=== PATIENT | female | born 1945 | race Caucasian/White ===

== ENCOUNTER → 2017-02-20 | Outpatient (CLI) | payer MEDICARE ==
--- NOTE | 2017-02-20 09:41 | KCIC ---
Indication: Routine screening. Comparison is made with prior exam from 01/24/2015. Bone mineral analysis of the lumbar spine and left hip was performed. Bone mineral density of the lumbar spine from L1 to L4 is 0.896 with a T score of -1.4. This compares with 0.933 and -1.0 on prior. The bone mineral density of the left hip is 0.763 with a T score of -1.5. This compares with 0.852 and -0.7 on prior. IMPRESSION: Osteopenia of the lumbar spine and left hip. Electronically signed by: Guillermo Damon MD (02/20/2017 9:38 AM) [id number]
--- NOTE | 2017-02-20 14:24 | KCIC ---
Bilateral digital screening mammograms: Reason for examination: Routine screening. Comparison is made to previous studies dated 02/08/2016 and 01/24/2015. The skin and nipples show no abnormalities. No abnormal axillary lymph nodes are seen. The breast parenchyma shows scattered fibroglandular density. (Breast density: Category B.) There are no dominant masses, suspicious calcifications or architectural distortions. Impression: No evidence of malignancy. Recommend routine screening. BI-RADS Category 1: Negative. "Our facility is accredited by the [employer] Mammography Program." This patient's information has been entered into a reminder system for the patient to be notified with the results of her examination and a target date for the next mammogram. Electronically signed by: Alana Garcia MD (02/20/2017 2:20 PM) [id number]
== END | disposition home or self-care (01) ==
LOC: KCIC DEXA 08:40
PROVIDERS: ATTEND Family Medicine
DX: Z12.31 Encounter for screening mammogram for malignant neoplasm of breast (principal); Z78.0 Asymptomatic menopausal state; M85.88 Other specified disorders of bone density and structure, other site
CPT/HCPCS: 77080; G0202; 77067

== ENCOUNTER → 2017-03-14 | Outpatient (CLI) | payer MEDICARE ==
--- NOTE | 2017-03-14 14:52 | KCIC ---
CT CALCIUM SCORING dated 03/14/2017 2:30 PM No comparison available. Clinical Indication: Calcium screening. Hypertension and high cholesterol Technical factors: Computed tomography of the heart was performed with ECG gating, suspended respiration and without the administration of contrast material. Post processing was performed on the 3-D computer workstation using diastolic phase images to measure the amount of coronary vascular calcium. Scoring was aquired using the Agatston Method. Results: Thorax: No significant abnormality is identified in the lungs or mediastinum. Note that this CT exam is limited to the heart and adjacent structures. There are a few tiny subpleural nodules at the both lung bases that measure 2 to 3 mm in size, nonspecific. Coronary arteries: Calcium is absent. Total Agaston calcium score equals 0. Coronary vascular calcium is not detected with this exam. This does not absolutely rule out the presence of atherosclerotic plaque, including unstable plaque, but does imply a very low likelihood of significant luminal obstruction. A negative test may be consistent with a low risk of cardiovascular event in the next 2 to 5 years. Conclusions: 1. Normal study, no coronary artery calcium identified. 2. Couple of tiny nonspecific subpleural nodular densities at both lung bases Recommendations: Healthy lifestyle choices including eating appropriately and exercise are encouraged. Additional supporting information concerning the findings and recommendation contained within this report can be found in the consensus statements on coronary vascular calcium published by the [place] [employer] and [place] [employer] and Prevention 5 Conference (Circulation 1996; 94: 3460-2162; J Am [employer]ano Cardiol 2000; 36: 326-340 and Circulation 2000; 101: 111-116). Electronically signed by: Baltazar Zhou MD (03/14/2017 2:49 PM) [id number]
== END | disposition home or self-care (01) ==
LOC: KCIC CT 14:15
PROVIDERS: ATTEND Family Medicine
DX: Z13.6 Encounter for screening for cardiovascular disorders (principal); I10 Essential (primary) hypertension; E78.00 Pure hypercholesterolemia, unspecified; R91.8 Other nonspecific abnormal finding of lung field
CPT/HCPCS: 75571

== ENCOUNTER → 2018-02-21 | Outpatient (CLI) | payer MEDICARE | END | disposition home or self-care (01) | LOC: KCIC MAMMO 07:45 | DX: Z12.31 Encounter for screening mammogram for malignant neoplasm of breast (principal) | CPT/HCPCS: 77063; 77067 ==

== ENCOUNTER → 2018-06-02 | Outpatient (CLI) | payer MEDICARE ==
--- NOTE | 2018-06-02 15:37 | KCIC ---
EXAM: CT Chest without IV contrast CLINICAL HISTORY: Lung nodule follow-up COMPARISON: CT calcium scoring/cardiac 03/14/2017 TECHNIQUE: CT of the chest without intravenous contrast. Axial, coronal and sagittal reformatted images were generated. ---PQRS compliance statement - One or more of the following individualized dose reduction techniques were utilized for this study: 1. Automated exposure control 2. Adjustment of the mA and/or kV according to patient size 3. Use of iterative reconstruction technique--- FINDINGS: Lack of intravenous contrast limits evaluation of solid organs, vasculature, and lymph nodes. Chest: Heart is not enlarged. No pericardial effusion. Trace pericardial fluid superiorly likely physiologic. Aorta is normal in caliber throughout. A few prominent mediastinal and hilar lymph nodes are seen, not enlarged by size criteria. No axillary lymphadenopathy. No pleural effusion or pneumothorax. Mild biapical pleural/painful scarring/thickening is seen. The previously seen lung nodules are grossly stable. There are additional lung nodules not seen on prior exam, for example a 3 mm right upper lobe lung nodule (image 47) and 4 mm left upper lobe lung nodule (image 46) are seen. Given that these are not seen on the prior exam Visualized Upper abdomen: A 2 cm and 0.7 cm left hepatic lobe cystic lesions seen. Adrenal glands are normal. Common bile duct measures up to 6 mm, only partially visualized. Bones: Osseous structures are unremarkable. IMPRESSION: 1. Multiple bilateral lung nodules are seen, the lung nodules included on the prior exam are stable although several lung nodules in the upper lobes were not included on the [id number] on prior exam. Therefore for these lung nodules, Per Fleischner Society guidelines for incidentally found solid nodules measuring less than 6 mm, no follow-up is necessary if patient is considered at low risk for lung cancer. If patient is considered to be at high risk, such as with history of smoking, then CT follow-up in about 12 months can be considered. 2. Left hepatic lobe cystic lesions are seen. 3. Upper limits normal for common bile duct. Electronically signed by: Matthew Maddox MD (06/02/2018 3:34 PM) [id number]
== END | disposition home or self-care (01) ==
LOC: KCIC CT 13:38
PROVIDERS: ATTEND Family Medicine
DX: R91.8 Other nonspecific abnormal finding of lung field (principal)
CPT/HCPCS: 71250

== ENCOUNTER → 2019-01-01 | Outpatient (CLI) | payer MEDICARE ==
--- NOTE | 2019-01-01 10:10 | KCIC ---
Complete abdomen ultrasound study Clinical indications: Bilirubin in urine. COMPARISON: CT study dated June 02, 2018. FINDINGS: The pancreas is homogeneous without focal enlargement. No focal aneurysmal dilatation of the abdominal aorta is seen. The intrahepatic portion of the IVC is unremarkable. There is a 2.4 cm cyst of the left lobe of the liver which is unchanged in size from the prior CT study. Additional hepatic cysts were seen by CT but are not evident sonographically. The liver measures 15.2 cm in length which is normal. The gallbladder is normal without gallstones. The extrahepatic bile 3.7 mm in caliber which is normal. The length of the right kidney is 10.1 cm and the length of the left kidney is 10.1 cm. No hydronephrosis or renal mass or perinephric fluid collection is seen on either side. The spleen is homogeneous and measures 8.9 cm in length. No ascites is seen. IMPRESSION: Hepatic cyst. Unremarkable abdomen ultrasound study otherwise. Electronically signed by: Sang Iniguez MD (01/01/2019 10:07 AM) [email or web address]
== END | disposition home or self-care (01) ==
LOC: KCIC US 07:39
PROVIDERS: ATTEND Family Medicine
DX: K76.89 Other specified diseases of liver (principal)
CPT/HCPCS: 76700

== ENCOUNTER → 2019-03-05 | Outpatient (CLI) | payer MEDICARE ==
--- NOTE | 2019-03-05 16:49 | KCIC ---
Bilateral digital screening mammograms with 3-D tomosynthesis: Reason for examination: Routine screening. Comparison is made to previous studies dated back to 02/08/2016. Bilateral mammograms in CC and oblique projections were obtained with 2-D imaging and 3-D tomosynthesis imaging on a Siemens Inspiration unit and reviewed on the workstation. Interpretation was made with the benefit of CAD. The skin and nipples show no abnormalities. No abnormal axillary lymph nodes are seen. The breast parenchyma shows scattered fatty and fibroglandular density. (Breast density: Category B.) There are small nodular parenchymal asymmetry seen bilaterally which are stable. There are no new dominant masses, suspicious calcifications or architectural distortion. Impression: No evidence of malignancy. Recommend routine screening. BI-RAD Category 2: Benign. "Our facility is accredited by the [employer] Mammography Program." This patient's information has been entered into a reminder system for the patient to be notified with the results of her examination and a target date for the next mammogram. Electronically signed by: Alana Garcia MD (03/05/2019 4:47 PM) [id number]
== END | disposition home or self-care (01) ==
LOC: KCIC MAMMO 13:39
PROVIDERS: ATTEND Family Medicine
DX: Z12.31 Encounter for screening mammogram for malignant neoplasm of breast (principal); N64.89 Other specified disorders of breast
CPT/HCPCS: 77063; 77067

== ENCOUNTER → 2019-07-22 | Outpatient (CLI) | payer MEDICARE ==
--- NOTE | 2019-07-23 08:10 | KCIC ---
Examination: CT CHEST WO CONTRAST History: Dianne Weller Comparison/Correlation: 06/02/2018 CT chest without contrast Findings: Axial images of the chest were obtained without contrast. Sagittal and coronal reformatted images were provided. Mild bilateral lower lobe bronchiectasis greater on the left is present. Several pulmonary nodules are present bilaterally. These are small in size measuring less than 0.5 cm. No suspicious infiltrate. No pneumothorax. No suspicious infiltrate. Biapical pleural thickening again seen. Bony structures are unremarkable. Hepatic cysts are present. Impression: No suspicious process. Bilateral pulmonary nodules are stable. PQRS Compliance Statement: One or more of the following individualized dose reduction techniques were utilized for this examination: 1. Automated exposure control 2. Adjustment of the mA and/or kV according to patient size 3. Use of iterative reconstruction technique Electronically signed by: Brian Nash MD (07/23/2019 8:08 AM) [facility]
== END | disposition home or self-care (01) ==
LOC: KCIC CT 13:23
PROVIDERS: ATTEND Internal Medicine
DX: R91.8 Other nonspecific abnormal finding of lung field (principal); J47.9 Bronchiectasis, uncomplicated; K76.89 Other specified diseases of liver; I10 Essential (primary) hypertension
CPT/HCPCS: 71250

== ENCOUNTER → 2020-03-08 | Outpatient (CLI) | payer MEDICARE ==
--- NOTE | 2020-03-08 12:03 | KCIC ---
EXAM: Bilateral digital screening mammogram with tomosynthesis. HISTORY: 75-year-old female presents for screening mammography. TECHNIQUE: Full-field digital craniocaudal and mediolateral oblique 2D and 3D tomosynthesis images of both breasts are obtained for evaluation. Computer aided detection with AnergisD software version 9.3 was applied. COMPARISON: 03/05/2019 and 02/21/2018 BREAST PARENCHYMAL DENSITY: Level B - Scattered fibroglandular densities. FINDINGS: There is no new suspicious mass, microcalcification or region of architectural distortion. There are stable areas of asymmetry within both breasts. There are multiple benign calcifications. IMPRESSION: BI-RADS Category 2: Benign finding(s). RECOMMENDATION: Annual mammography is recommended. If your mammogram demonstrates that you have dense breast tissue, which could hide abnormalities, and if you have other risk factors for breast cancer that have been identified, you might benefit from supplemental screening tests that may be suggested by your ordering physician. Dense breast tissue, in and of itself, is a relatively common condition. This information is not provided to cause undue concern, but rather to raise your awareness and to promote discussion with your physician regarding the presence of other risk factors, in addition to dense breast tissue. A report of your mammography results will be sent to you and your physician. You should contact your physician if you have any questions or concerns regarding this report. Mammography is a sensitive method for finding small breast cancers, but it does not detect them all and is not a substitute for careful clinical examination. A negative mammogram does not negate a clinically suspicious finding and should not result in delay in biopsying a clinically suspicious abnormality. PQRS compliance statement - Patient information was entered into a reminder system with a target due date for the next mammogram. "Our facility is accredited by the [employer] Mammography Program." Electronically signed by: Karen Cevallos MD (03/08/2020 12:01 PM) [email or web address]
== END | disposition home or self-care (01) ==
LOC: KCIC MAMMO 11:01
PROVIDERS: ATTEND Internal Medicine
DX: Z12.31 Encounter for screening mammogram for malignant neoplasm of breast (principal); N64.89 Other specified disorders of breast
CPT/HCPCS: 77063; 77067

== ENCOUNTER → 2020-06-13 | Outpatient (CLI) | payer MEDICARE ==
--- NOTE | 2020-06-13 11:16 | KCIC ---
EXAM: DUAL ENERGY X-RAY ABSORPTIOMETRY (DEXA). HISTORY: Postmenopausal screening. FINDINGS: The lowest measured T-score is -1.8 in the left hip, based on a bone mineral density of 0.722 g/cm^2. Refer to the worksheets for full detail. There has been a 5.4 percent decrease in density of the left hip and 0.1 percent decrease in density of the lumbar spine compared to a study dated 02/20/2017. IMPRESSION: Low bone mass. Bone mineral density yields a T-score between -1.0 and -2.5. Fracture risk is increased. METHODOLOGY: Dual energy x-ray absorptiometry was performed to measure bone mineral density. The following analysis is based on the 2019 Official Positions of the International Society for Clinical Densitometry: Measurements of the hips and the average of L1-L4 are preferred. When the spine and/or hip cannot be feasibly measured or interpreted, or in the setting of hyperparathyroidism, distal radial bone mineral density may be measured. The lumbar spine T-score is based on the average bone mineral density of L1-L4. In the setting of artifact or anatomic abnormality, some lumbar levels may be excluded, and the remaining levels used for calculation. A single lumbar level is not used for diagnosis, and if only a single level is available for assessment, another anatomic site will be used to assign a diagnosis. The hip T-score is based on the bone mineral density measurement of the femoral neck or total proximal femur of either side, whichever is lowest. Bilateral mean values are not used for diagnosis. The forearm T-score is derived from 33% of the distal radius of the nondominant forearm. Electronically signed by: Karen Cevallos MD (06/13/2020 11:13 AM) [id number]
== END ==
LOC: KCIC DEXA 10:29
PROVIDERS: ATTEND Internal Medicine
DX: N95.9 Unspecified menopausal and perimenopausal disorder (principal)
CPT/HCPCS: 77080

== ENCOUNTER → 2021-10-31 | Outpatient (CLI) | payer MEDICARE ==
--- NOTE | 2021-10-31 12:20 | KCIC ---
Bilateral digital screening mammograms with 3-D tomosynthesis: Reason for examination: Routine screening. Comparison is made to previous studies dated back to 02/08/2016. Bilateral mammograms in CC and oblique projections were obtained with 2-D imaging and 3-D tomosynthes is imaging on a Siemens Inspiration unit and reviewed on the workstation. Interpretation was made wit h the benefit of CAD. The skin and nipples show no abnormalities. No abnormal axillary lymph nodes are seen. The breast par enchyma shows scattered fatty and fibroglandular density. (Breast density: Category B.) There are no dominant masses, suspicious calcifications or architectural distortion. Benign calcifications are pre sent. Impression: No evidence of malignancy. Recommend routine screening. BI-RAD Category 2: Benign. "Our facility is accredited by the [employer] Mammography Program." This patient's information has been entered into a reminder system for the patient to be notified wit h the results of her examination and a target date for the next mammogram. Electronically signed by: Alana Garcia MD (10/31/2021 12:17 PM) [id number]
== END ==
LOC: KCIC MAMMO 10:09
PROVIDERS: ATTEND Internal Medicine
DX: Z12.31 Encounter for screening mammogram for malignant neoplasm of breast (principal)
CPT/HCPCS: 77063; 77067